=== PATIENT | male | born 1985 | race Caucasian/White ===

== ENCOUNTER 2023-08-11 18:03 | Emergency (ER) | payer OTHER ==
[~2023-08-11] VITALS: Ht 182.9 cm; Wt 86.2 kg
[~2023-08-11 18:03] MED LIST: CEPH500 PO; CETI10 PO; DIPATR PO; HYDACE5 PO; NAPR500 PO; OXYACE5T PO; PRED20 PO; PROM25 PO; RXOXYACE PO; ZOLP10 PO
[2023-08-11] MEDS ORDERED: OMEP20ER PO (18:52)
[2023-08-11] MEDS ORDERED: BRAIN SUPPLEMENT (18:53)
[2023-08-11] MEDS ORDERED: [UNRECOGNIZED DRUG - OTHER] (18:53)
[2023-08-11 19:01] LABS: Albumin, Blood 4.1 g/dL (3.4-5.0); Albumin/Globulin Ratio 1.1 (0.8-1.8); Bilirubin, Total 0.7 mg/dL (0.1-1.0); Bun/Creatinine Ratio 13.9 (12.0-20.0); Calcium, Blood 8.9 mg/dL (8.5-10.1); Creatinine, Blood 0.79 mg/dL (0.60-1.20); Globulin, Blood 3.9 g/dL (2.2-4.0); Potassium, Blood 4.2 mmol/L (3.5-5.5)
[2023-08-11 19:03] LABS: BASOPHILS ABSOLUTE AUTO 0.04 K/mm3 (0.00-0.23); BASOPHILS PERCENT AUTO 0 % (0-2); EOSINOPHILS ABSOLUTE AUTO 0.02 K/mm3 (0.00-0.68); EOSINOPHILS PERCENT AUTO 0 % (0-6); Hematocrit 44.2 % (37.0-53.0); Hemoglobin 15.2 g/dL (13.5-17.5); IMMATURE GRAN ABSOLUTE AUTO 0.06 K/mm3 (0.00-0.10); IMMATURE GRAN PERCENT AUTO 0 % (0-1); LYMPHOCYTES ABSOLUTE AUTO 1.03 K/mm3 (0.84-5.20); LYMPHOCYTES PERCENT AUTO 6 % (21-46); MONOCYTES ABSOLUTE AUTO 0.87 K/mm3 (0.16-1.47); MONOCYTES PERCENT AUTO 5 % (4-13); Mean Corpuscular HGB 29.2 pg (26.0-34.0); Mean Corpuscular Volume 85 fL (80-100); Mean Platelet Volume 9.8 fL (9.1-12.4); NEUTROPHILS ABSOLUTE AUTO 15.54 K/mm3 (1.96-9.15); NEUTROPHILS PERCENT AUTO 89 % (41-73); Platelet Count 305 K/mm3 (150-400); RDW Coefficient Variation 11.9 % (11.7-14.2); RDW Standard Deviation 36.3 fL (35.1-46.3); White Blood Cell Count 17.56 K/mm3 (4.00-11.30)
[2023-08-11 19:04] LABS: Mean Corpuscular HGB Conc 34.4 g/dL (31.5-36.5)
[2023-08-11] MEDS ORDERED: Amoxicillin875 MG PO (20:20)
[2023-08-11] MEDS ORDERED: AZIT250 PO (20:20)
[2023-08-11] MEDS ORDERED: ALBU90OI INH (20:20)
[2023-08-11 20:43] VITALS: BP 131/67
== END 2023-08-11 20:44 | disposition home or self-care (01) ==
LOC: ER 18:03
PROVIDERS: Student in an Organized Health Care Education/Training Program
DX: J18.9 Pneumonia, unspecified organism (principal); C15.9 Malignant neoplasm of esophagus, unspecified; D72.829 Elevated white blood cell count, unspecified; F17.200 Nicotine dependence, unspecified, uncomplicated; Z88.6 Allergy status to analgesic agent; Z79.899 Other long term (current) drug therapy
CPT/HCPCS: 71046; 80053; 85025; 94640; 94664; 99284-25; A9270

== ENCOUNTER 2025-03-11 15:15 | Inpatient (IN) | payer OTHER ==
[2025-03-11] VITALS (10 sets, daily range): BP systolic 122–161; BP diastolic 67–107
[~2025-03-11] VITALS: Ht 182.9 cm; Wt 86.2 kg
[~2025-03-11 15:15] MED LIST changes: +ALBU90OI INH; +AZIT250 PO; +Amoxicillin875 MG PO; +BRAIN SUPPLEMENT; +OMEP20ER PO; +[UNRECOGNIZED DRUG - OTHER]
[2025-03-11] MEDS ORDERED: Ketorolac Tromethamine 30mg Vial IV ONE (15:25)
[2025-03-11] MEDS ORDERED: Metoclopramide HCl 5MG / ML 2ML Vial IV ONE (15:25)
[2025-03-11 15:51] LABS: BASOPHILS ABSOLUTE AUTO 0.04 K/mm3 (0.00-0.23); BASOPHILS PERCENT AUTO 0 % (0-2); EOSINOPHILS ABSOLUTE AUTO 0.02 K/mm3 (0.00-0.68); EOSINOPHILS PERCENT AUTO 0 % (0-6); Hematocrit 46.9 % (37.0-53.0); Hemoglobin 15.5 g/dL (13.5-17.5); IMMATURE GRAN ABSOLUTE AUTO 0.04 K/mm3 (0.00-0.10); IMMATURE GRAN PERCENT AUTO 0 % (0-1); LYMPHOCYTES ABSOLUTE AUTO 0.97 K/mm3 (0.84-5.20); LYMPHOCYTES PERCENT AUTO 5 % (21-46); MONOCYTES ABSOLUTE AUTO 1.03 K/mm3 (0.16-1.47); MONOCYTES PERCENT AUTO 5 % (4-13); Mean Corpuscular HGB Conc 33.0 g/dL (31.5-36.5); Mean Corpuscular Volume 88 fL (80-100); NEUTROPHILS ABSOLUTE AUTO 16.89 K/mm3 (1.96-9.15); NEUTROPHILS PERCENT AUTO 89 % (41-73); NRBC ABSOLUTE 0.00 K/mm3 (0.00-0.02); NRBC Auto 0.0 /100 WBC (0.0-0.2); Platelet Count 261 K/mm3 (150-400); RDW Coefficient Variation 12.6 % (11.7-14.2); RDW Standard Deviation 40.2 fL (35.1-46.3)
[2025-03-11 16:30] LABS: Alanine Aminotransfer (ALT/SGP 36.0 U/L (12-78); Albumin, Blood 3.9 g/dL (3.4-5.0); Albumin/Globulin Ratio 1.0 (0.8-1.8); Anion Gap 7.0 mmol/L (3-11); Aspartate Aminotrans (AST/SGOT 28.0 U/L (12-37); Bilirubin, Total 0.8 mg/dL (0.1-1.0); Blood Urea Nitrogen 13.0 mg/dL (8-24); CO2, Blood 27.0 mmol/L (21-32); Calcium, Blood 8.9 mg/dL (8.5-10.1); Chloride, Blood 108.0 mmol/L (98-108); Creatinine, Blood 0.69 mg/dL (0.60-1.20); Globulin, Blood 3.8 g/dL (2.2-4.0); Glucose, Blood 121.0 mg/dL (70-99); Potassium, Blood 4.2 mmol/L (3.5-5.5); Sodium, Blood 138.0 mmol/L (136-145); Total Protein, Blood 7.7 g/dL (6.4-8.2)
[2025-03-11] MEDS ORDERED: BUPRENORPHIN-N1 EAC1 SL (17:27)
[2025-03-11 18:49] LABS: Source, Urine Voided
[2025-03-11 18:52] LABS: Bilirubin, Urine Neg (Neg); Color, Urine Yellow (P-Yellow); Glucose Qualitative, Urine Neg (Neg); Ketones, Urine 3+ (Neg); Leukocyte Esterase, Urine 1+ (Neg); Protein, Urine 2+ (Neg); Specific Gravity, Urine 1.015 (1.003-1.022); Urobilinogen, Urine 1+ (Normal)
[2025-03-11] MEDS ORDERED: Bupivacaine 0.5% HCl 5 MG/ML 30MLVIAL ONE (18:53)
[2025-03-11] MEDS ORDERED: FentaNYL Citrate 50 MCG/ML 2 ML Injection ONE ×2 (18:58→19:11)
[2025-03-11] MEDS ORDERED: Midazolam HCl 1MG / ML 2ML Vial ONE (18:58)
[2025-03-11] MEDS ORDERED: Ondansetron HCl 2 MG / ML 2ML Vial ONE (19:02)
[2025-03-11] MEDS ORDERED: Dexamethasone Sod Phos 10 MG/ML 1ML VIAL ONE (19:02)
[2025-03-11] MEDS ORDERED: Ketorolac Tromethamine 30mg Vial ONE (19:16)
[2025-03-11] MEDS ORDERED: Rocuronium Bromide 10 MG/ML 5ML Injection IV ONE (19:17)
[2025-03-11] MEDS ORDERED: Ketamine HCl 100 MG / ML 5ML Vial ONE (19:17)
--- NOTE | 2025-03-11 19:19 | NUR ---
03/11/251918 Ledy Collado 3G ANCEF GIVEN BY ANESTHESIA AT [id number]
[2025-03-11] MEDS ORDERED: Albuterol 2.5 MG/3 ML VIAL INH PRN (19:20)
[2025-03-11] MEDS ORDERED: Labetalol HCL 5 MG/ML 4ML Injection (Single Dose) ONE (19:24)
[2025-03-11] MEDS ORDERED: Labetalol HCL 5 MG/ML 4ML Injection (Single Dose) IV PRN (19:25)
[2025-03-11] MEDS ORDERED: Metoclopramide HCl 5MG / ML 2ML Vial IV PRN (19:25)
[2025-03-11] MEDS ORDERED: Ondansetron HCl 2 MG / ML 2ML Vial IV PRN ×2 (19:25→20:00)
[2025-03-11] MEDS ORDERED: HYDROmorphone HCl/Pf 1MG SYR IV PRN ×3 (19:25→19:55)
[2025-03-11] MEDS ORDERED: FentaNYL Citrate 50 MCG/ML 2 ML Injection IV PRN ×2 (19:25→19:30)
[2025-03-11] MEDS ORDERED: Sugammadex Sodium 200 MG/2ML SDV (100 MG/ML) ONE (19:26)
[2025-03-11] MEDS ORDERED: ePHEDrine Sulfate 50 MG/ML 1ML Injection IV PRN (19:30)
[2025-03-11] MEDS ORDERED: NS 1,000 ML IV SCH (19:55)
[2025-03-11 19:58] LABS: Red Blood Cells, Urine 0-2 /hpf (0-2)
[2025-03-11] MEDS ORDERED: Albuterol 2.5 MG/3 ML VIAL ONE (20:05)
[2025-03-11] MEDS ORDERED: Ketorolac Tromethamine 30mg Vial IV PRN (20:15)
--- NOTE | 2025-03-12 04:15 | NUR ---
NOC SUMMARY- PT PAIN MANAGED WELL. DRESSING HAS SOME SHADOWING AND IS COMPRESSED. PT TOLERATING ORDERED DIET. PT VOIDING. NO OTHER COMPLAINTS. CALL LIGHT IN REACH.
[2025-03-12 04:49] VITALS: BP 117/71
[2025-03-12 07:21] VITALS: BP 115/69
[2025-03-12] MEDS ORDERED: Enoxaparin 40 MG/0.4 ML SYR SC SCH (09:00)
--- NOTE | 2025-03-12 09:37 | NUR ---
PT HELPED UP TO CHAIR AND VAPE PEN IN BED. PT DENIES USE. VAPE PEN IS NOW IN LOCKED BOX OUTSIDE ROOM.
[2025-03-12] MEDS ORDERED: OxyCODONE 10/Acetamin 325 TABLET PO PRN (10:20)
[2025-03-12 14:18] VITALS: BP 122/81
--- NOTE | 2025-03-12 16:40 | NUR ---
SUMMARY: PT IS POD1 EX LAP. A/O, VSS. PT PINA CLEAR LIQ DIET. PAIN MANAGED PER EMAR. PT WALKED IN [place] TODAY X2 AND SAT IN CHAIR MOST OF THE DAY. NO GAS YET, NO N/V. SURGIAL SITE WNL. PT USES CALL LIGHT
--- NOTE | 2025-03-12 18:59 | NUR ---
VAPE PEN GIVEN TO PT'S AT PT'S REQUEST.
--- NOTE | 2025-03-12 19:56 | NUR ---
PT RETURNED TO ROOM AFTER WALK WITH FAMILY; PT LEFT UNIT DURING SHIFT CHANGE.
[2025-03-12 20:31] VITALS: BP 133/73
--- NOTE | 2025-03-13 03:27 | NUR ---
RN TO ROOM TO ROUND; PT SLEEPING, EQUAL AND UNLABORED BREATHS. CALL LIGHT WITHIN REACH.
[2025-03-13 04:13] VITALS: BP 122/76
--- NOTE | 2025-03-13 05:17 | NUR ---
SHIFT SUMMARY NO ACUTE EVENTS OVERNIGHT. PT MEDICATED PER EMAR FOR PAIN. PT POD#2 EX LAP WITH LYSIS OF ADHESIONS. TOLERATING CLEAR LIQUID DIET, PASSING GAS. PT WITH SLIGHT SHADOWING ON SLOANE DRESSING THAT DID NOT INCREASE DURING SHIFT.
[2025-03-13 07:31] VITALS: BP 126/78
[2025-03-13 16:42] VITALS: BP 137/93
--- NOTE | 2025-03-13 16:43 | NUR ---
SHIFT SUMMARY NO ACUTE EVENTS THIS SHIFT. PATIENT ALERT AND ORIENTED X4. COMMUNICATING NEEDS EFFECTIVELY. POD 2 EXP LAP W/ BRYANT. VSS. MANAGING PAIN PER EMAR W/ REPORTED RELIEF. MIDLINE SLOANE DRESSING W/ SLIGHT SHADOWING - NO CHANGES TO DRAINAGE T/O DAY. TOLERATING ADVANCED DIET. REPORTS PASSING FLATULENCE, NO BM TODAY. VOIDING. INDEPENDENT IN ROOM. AMBULATING IN HALLWAY AND T/O HOSPITAL W/ FAMILY. UP IN CHAIR T/O DAY. POSSIBLE DC HOME TOMORROW. CALL LIGHT IN REACH.
[2025-03-13 20:41] VITALS: BP 137/90
--- NOTE | 2025-03-14 04:35 | NUR ---
NOC SUMMARY- PT DENIES PAIN. PT IS TOLERATING PO. PT PASSING GAS BUT NO BM. PT HAD SHOWER. PT AMBULATORY AND VOIDING. PT RESTING QUIETLY AND IN NO DISTRESS. SLOANE HAS SOME SHADOWING AND IS COMPRESSED. CALL LIGHT IN REACH.
[2025-03-14 05:43] VITALS: BP 122/75
[2025-03-14 07:38] VITALS: BP 125/85
--- NOTE | 2025-03-14 14:37 | NUR ---
DISCHARGE NOTE PATIENT A/OX4, ABLE TO MAKE NEEDS KNOWN. PLEASANT ADN COOPERATIVE WITH CARE. PATIENT WITH LARGE BOWEL MOVEMENT TODAY, ENCOURAGED TO USE OVER THE COUNTER BOWEL MEDS NEEDED WITH PAIN MEDICATION TO PREVENT CONSTIPATION. PATIENT EDUCATED TO REMOVED SLOANE DRESSING ON 03/[address] CANELA. FOLLOW UP WITH DR. CANELA TO BE SCHEDULED, PATIENT PROVIDED WITH ADDRESS AND PHONE NUMBER TO SCHEDULE. HARD SCRIPT FOR PERCOCET PROVIDED TO PATIENT. IV REMOVED PRIOR TO DISCHARGE, PATIENT LEFT FACILITY WITH FAMILY VIA WHEELCHAIR. NO OTHER CONCERNS. PATIENT AND FAMILY AGREEABLE TO DISCHARGE PLAN.
== END 2025-03-14 14:37 | disposition home or self-care (01) | DRG 337 ==
LOC: ER 15:15 → SURS 19:53
PROVIDERS: Emergency Medicine; ADMIT Surgery
PROC: 0DN80ZZ Release Small Intestine, Open Approach (ICD-10-PCS; principal; 2025-03-11 18:45)
DX: K56.50 Intestinal adhesions [bands], unspecified as to partial versus complete obstruction (principal); F17.210 Nicotine dependence, cigarettes, uncomplicated; F41.9 Anxiety disorder, unspecified; K21.9 Gastro-esophageal reflux disease without esophagitis; Z91.030 Bee allergy status; Z88.5 Allergy status to narcotic agent; Z79.899 Other long term (current) drug therapy; Z79.2 Long term (current) use of antibiotics; Z79.51 Long term (current) use of inhaled steroids; Z87.19 Personal history of other diseases of the digestive system
CPT/HCPCS: 74177; 80053; 81001; 83690; 85025; 87086; 93005; 93010; 94760; 96374-59; 96375; 99285-25; A9270; J1100; J1171; J1650; J1885; J2250; J2405; J2704; J2765; J3010; Q9967